=== PATIENT | male | born 1945 | race Caucasian/White ===

== ENCOUNTER 2018-02-22 09:59 | Observation (INO) ==
[2018-02-22 10:43] LABS: Basophils % 0.5 %; Eosinophils # 0.2 K/mcL (0.0-0.6); Eosinophils % 2.3 %; Hemoglobin 13.2 g/dL (12.9-16.9); Immature Granulocytes % 0.4 % (0-4); Lymphocytes # 0.9 K/mcL (0.6-4.6); Lymphocytes % 12.2 %; Mean Corpuscular HGB Conc 32.2 g/dL (31.6-35.5); Mean Corpuscular Hemoglobin 30.3 pg (28.0-33.3); Mean Platelet Volume 10.2 fL (9.4-12.4); Monocytes # 0.5 K/mcL (0.0-1.3); Monocytes % 7.1 %; Neutrophils # 5.6 K/mcL (1.6-8.9); Platelet Count 150 K/mcL (140-400); Red Blood Count 4.36 M/mcL (4.19-5.50); Segmented Neutrophils % 77.5 %
[2018-02-22 11:03] LABS: BUN/Creatinine Ratio 18 (6-26); Blood Urea Nitrogen 16 mg/dL (8-23); Calcium 9.3 mg/dL (8.6-10.3); Carbon Dioxide 29 mEq/L (23-29); Chloride 104 mEq/L (98-107); Digoxin 1.9 ng/mL (0.8-2.0); Glucose 114 mg/dL (70-105); Osmolality,Calculated 294 (280-300); Potassium 3.9 mEq/L (3.5-5.1); Sodium 141 mEq/L (136-145); eGFR For African Americans > 60 (> 60); eGFR For Non-African Americans > 60 (> 60)
[2018-02-22 11:10] LABS: INR 1.3; Prothrombin Time 13.6 Seconds (9.4-12.1)
[2018-02-22 11:13] LABS: Activated Partial Thrombo Time 31.5 Seconds (26.0-36.0)
[2018-02-22] MEDS ORDERED: ceFAZolin 1,000 MG in Water for inj. (sterile) 10 ML IVP ONE (11:52)
--- NOTE | 2018-02-22 12:03 | Emergency Department Note ---
Disposition Clinical Impression: Cellulitis Qualifiers: Site of cellulitis: extremity Site of cellulitis of extremity: lower extremity Laterality: left Qualified Code(s): L03.116 - Cellulitis of left lower limb Disposition: Admitted As Inpatient Condition: Good Time of Disposition: 12:30 Extremity Problem HPI - General Chief complaint: ED Extremity Problem,Nontraumatic Stated complaint: BLE edema Time Seen by Provider: 02/22/18 10:01 Source: patient, EMS Mode of arrival: EMS Limitations: no limitations Nursing Notes Reviewed: Yes Vital Signs Reviewed: Yes - History of Present Illness HPI Narrative: 72-year-old male presents here with complaints of bilateral leg edema. Patient presents left is worse than right. Patient reports he has had leg edema for months but the past week they have been treating left greater than right. Patient denies shortness of breath. Patient denies any fevers or chills. Patient has not seen his PCP recently. Patient does have an appointment on Tuesday but is unsure if he can make the appointment due to mobility issues. Patient reports he does sit with his legs tingling due to inability to lift them up. Pt Subjective Complaint: extremity pain, extremity swelling Onset (ago): week(s) (1) Consistency: constant Pain Scale: 0 Quality: aching Radiation: proximal Improves with: elevation Worsens with: walking Associated symptoms: Reports: denies other symptoms Context: immobilization - Related Data Home Medications Medication Instructions Recorded Confirmed Carvedilol [Coreg] 25 mg PO BID 02/22/18 02/22/18 Digoxin [Lanoxin] 0.25 mg PO DAILY 02/22/18 02/22/18 Levothyroxine [Synthroid] 150 mcg PO DAILY 02/22/18 02/22/18 Allergies Allergy/AdvReac Type Severity Reaction Status Date / Time No Known Allergies Allergy Verified 02/22/18 10:10 All systems ED: reviewed and negative except as stated. Review of Systems: As Per HPI Constitutional: Denies: fever, chills Cardiovascular: Reports: edema. Denies: chest pain Respiratory: Denies: dyspnea Past Medical History - Past Medical History Attestation: Yes The following information was validated with the patient. Source: patient, nursing notes reviewed Medical history: Reports: atrial fibrillation, thyroid disease Psychiatric history: Reports: no psych history - Social History Smoking Status: Never smoker Smokeless Tobacco Status: No Alcohol use: Reports: none Drug use: Reports: none Physical Exam - General Limitations: no limitations General appearance: alert, in no apparent distress - ENT ENT exam: normal oropharynx, mucous membranes moist, TM's normal bilaterally - Neck Neck exam: Present: normal inspection, full ROM. Absent: thyromegaly - Expanded Neck Exam Neck exam focused ED: Absent: JVD - Chest Chest inspection: Present: normal inspection, symmetric chest wall rise - Expanded Respiratory Exam Location: rales: Left, Right, Lower (faint) - Cardiovascular Cardiovascular exam: Present: regular rate, normal rhythm, normal heart sounds - Abdominal Exam Abdominal exam: Present: soft, Non-Tender, normal bowel sounds - Extremities Exam Extremities exam: Present: pedal edema (1-2 + b/l L>R with skin breakdown and redness) - Expanded Skin Exam Distribution: LUE, RLE Description: Present: erythematous, swelling, blisters Course Course Narrative: Due to patient's immobility and low likely had a follow-up patient will be admitted for IV antibiotics and further management. Patient has been accepted by Dr. Singletary Vital Signs Temperature 98.0 F 02/22/18 10:01 Pulse Rate 79 02/22/18 10:01 Respiratory Rate 18 02/22/18 10:01 Blood Pressure 146/68 02/22/18 10:01 O2 Sat by Pulse Oximetry 98 02/22/18 10:01 Temperature 98.0 F 02/22/18 10:01 Pulse Rate 79 02/22/18 10:01 Respiratory Rate 16 02/22/18 12:13 Blood Pressure 146/68 02/22/18 12:13 O2 Sat by Pulse Oximetry 98 02/22/18 10:01 Oxygen Delivery Oxygen Delivery Room Air Extremity Problem, Nontraumati - Differential Diagnosis Likely: cellulitis - Lab Data Lab results reviewed: Yes I reviewed the patient's lab results. Lab results narrative: Patient's labs within normal limits. Results discussed with patient and family. Result diagrams: 02/22/18 10:35 02/22/18 10:35 Lab Results 02/22/18 02/22/18 02/22/18 Range/Units 10:35 10:35 10:35 WBC 7.3 (4.3-11.1) K/mcL RBC 4.36 (4.19-5.50) M/mcL Hgb 13.2 (12.9-16.9) g/dL Hct 41.0 (37.5-50.1) % MCV 94.0 (83.0-100.0) fL MCH 30.3 (28.0-33.3) pg MCHC 32.2 (31.6-35.5) g/dL RDW 15.0 H (11.5-14.5) % Plt Count 150 (140-400) K/mcL MPV 10.2 (9.4-12.4) fL Immature Gran % 0.4 (0-4) % Seg Neutrophils % 77.5 % Lymphocytes % 12.2 % Monocytes % 7.1 % Eosinophils % 2.3 % Basophils % 0.5 % Neutrophils # 5.6 (1.6-8.9) K/mcL Lymphocytes # 0.9 (0.6-4.6) K/mcL Monocytes # 0.5 (0.0-1.3) K/mcL Eosinophils # 0.2 (0.0-0.6) K/mcL Basophils # 0.0 (0.0-0.2) K/mcL PT 13.6 H (9.4-12.1) Seconds INR 1.3 APTT 31.5 (26.0-36.0) Seconds Sodium 141 (136-145) mEq/L Potassium 3.9 (3.5-5.1) mEq/L Chloride 104 (98-107) mEq/L Carbon Dioxide 29 (23-29) mEq/L BUN 16 (8-23) mg/dL Creatinine 0.91 (0.70-1.30) mg/dL Est GFR ( Amer) > 60 (> 60) Est GFR (Non-Af Amer) > 60 (> 60) BUN/Creatinine Ratio 18 (6-26) Glucose 114 H (70-105) mg/dL Calculated Osmolality 294 (280-300) Calcium 9.3 (8.6-10.3) mg/dL B-Natriuretic Peptide (Less than 100) pg/mL Digoxin 1.9 (0.8-2.0) ng/mL 02/22/18 Range/Units 10:35 WBC (4.3-11.1) K/mcL RBC (4.19-5.50) M/mcL Hgb (12.9-16.9) g/dL Hct (37.5-50.1) % MCV (83.0-100.0) fL MCH (28.0-33.3) pg MCHC (31.6-35.5) g/dL RDW (11.5-14.5) % Plt Count (140-400) K/mcL MPV (9.4-12.4) fL Immature Gran % (0-4) % Seg Neutrophils % % Lymphocytes % % Monocytes % % Eosinophils % % Basophils % % Neutrophils # (1.6-8.9) K/mcL Lymphocytes # (0.6-4.6) K/mcL Monocytes # (0.0-1.3) K/mcL Eosinophils # (0.0-0.6) K/mcL Basophils # (0.0-0.2) K/mcL PT (9.4-12.1) Seconds INR APTT (26.0-36.0) Seconds Sodium (136-145) mEq/L Potassium (3.5-5.1) mEq/L Chloride (98-107) mEq/L Carbon Dioxide (23-29) mEq/L BUN (8-23) mg/dL Creatinine (0.70-1.30) mg/dL Est GFR ( Amer) (> 60) Est GFR (Non-Af Amer) (> 60) BUN/Creatinine Ratio (6-26) Glucose (70-105) mg/dL Calculated Osmolality (280-300) Calcium (8.6-10.3) mg/dL B-Natriuretic Peptide 609 H (Less than 100) pg/mL Digoxin (0.8-2.0) ng/mL - Radiology Data Radiology results reviewed: Yes I reviewed the patient's radiology results. Patient's ultrasound left lower extremity was negative for acute DVT. Patient has some superficial phlebitis. Patient chest x-ray was interpreted by radiologist reviewed by me as negative for acute abnormality. Some bibasilar scarring noted but no acute failure. Results discussed with patient - EKG Data EKG attestation: Yes I reviewed and interpreted this EKG. Rate: normal Rhythm: A.Fib T wave inversions noted in: v5, v6 When compared to previous EKG there are: previous EKG unavailable Interpretation: other (A Fib rate controlled)
[2018-02-22] MEDS ORDERED: Naloxone 0.4 MG/ML INJ IVP PRN (12:34)
[2018-02-22] MEDS: *HR* Enoxaparin 40 MG/0.4 ML SYRINGE SQ SCH (14:12)
--- NOTE | 2018-02-22 14:20 | Internal Med History&Physical ---
Date of Encounter: 02/22/18 Time of Encounter: 14:17 Assessment and Plan (1) Cellulitis Current visit: Yes Status: Acute Continue IV antibiotics. Will monitor improvement Qualifiers: Site of cellulitis: extremity Site of cellulitis of extremity: lower extremity Laterality: left Qualified Code(s): L03.116 - Cellulitis of left lower limb (2) Afib Current visit: Yes Status: Chronic Rate and rhythm stable. Continue medication. Qualifiers: Atrial fibrillation type: chronic Qualified Code(s): I48.2 - Chronic atrial fibrillation (3) Hypothyroidism Current visit: Yes Status: Chronic Will order TSH and free T4 in am Qualifiers: Hypothyroidism type: unspecified Qualified Code(s): E03.9 - Hypothyroidism , unspecified Internal Medicine - H&P: HPI Admitted From: Emergency Dept Plans for Post Hospital Care: Home History of present illness: Mr. Moody is a 72 year old male here from the ER for observation of bilateral lower extremity edema and left lower extremity cellulitis. Patient started on IV antibiotics. Patient denies shortness of breath, chest pain, nausea vomiting diarrhea, fever or chills. Patient states his legs have been swollen for the past month and has not followed up with PCP. History of a fib and hypothyroidism. Patient has not been taking Synthroid due to he thought it was making him feel bad. Past Med Surg Social Fam HX - Past Medical History Medical history: atrial fibrillation, thyroid disease Psychiatric history: no psych history - Social History Smoking Status: Never smoker Smokeless Tobacco Status: No Alcohol use: none Drug use: none Internal Medicine - H&P: Meds Carvedilol [Coreg] 25 mg PO BID 02/22/18 [History] Digoxin [Lanoxin] 0.25 mg PO DAILY 02/22/18 [History] Levothyroxine [Synthroid] 150 mcg PO DAILY 02/22/18 [History] 3 Allergy/AdvReac Type Severity Reaction Status Date / Time No Known Allergies Allergy Verified 02/22/18 10:10 All Systems PM: A 10-system review of systems was performed and is negative for pertinent findings except as documented above in the HPI. - Constitutional Constitutional: no chills, no fever(s), no night sweats - EENT Eyes: no change in vision, no discharge, no pain, no photophobia Ears: no ear discharge, no ear pain, no tinnitus Nose, mouth and throat: no dysphagia, no nasal discharge, no neck pain, no sore throat - Cardiovascular Cardiovascular ROS IM: edema, no chest pain, no diaphoresis, no dyspnea, no lightheadedness, no palpitations, no syncope Additional comments: Bilateral lower extremity edema 2+ pitting left leg slightly more than right. Redness to left leg with small abrasion on left anterior butler - Respiratory Respiratory: no cough, no dyspnea, no wheezing, no excessive phlegm production - Gastrointestinal Gastrointestinal: no abdominal pain, no diarrhea, no hematemesis, no hematochezia, no melena, no nausea, no vomiting - Musculoskeletal Musculoskeletal ROS IM: no numbness, no tingling - Integumentary Integumentary IM: no rash, no unusual bruising - Neurological Neurological ROS: no confusion, no convulsions, no focal weakness, no numbness, no tingling, no tremor(s) - Hematologic/Lymphatic Hematologic/Lymphatic: no easy bruising - Constitutional Vitals: Temp Pulse Resp BP Pulse Ox 97.7 F 66 14 130/71 94 02/22/18 13:55 02/22/18 13:55 02/22/18 13:55 02/22/18 13:55 02/22/18 13:55 General appearance: Present: A&O X 3, pleasant, no acute distress, answers questions appropriately - Head Head exam: Present: atraumatic, normocephalic - Eye Eye exam: Present: PERRL, conjuntiva pink, sclera anicteric Pupils: Present: PERRL - Neck Neck exam general surgery: Present: supple, trachea midline. Absent: lymphadenopathy - Respiratory Respiratory exam: Present: CTAB. Absent: accessory muscle use, rales, rhonchi, wheezes - Cardiovascular Cardiovascular exam: Present: irregular rhythm, +S1, +S2. Absent: diastolic murmur, gallop, rubs, systolic murmur - GI/Abdominal GI/Abdominal exam: Present: normal bowel sounds, soft, no peritoneal signs. Absent: distended, tenderness - Extremities Exam Extremities exam: Present: warm, radial pulses palpable and symmetrical. Absent : calf tenderness, cyanotic, pedal edema Additional comments: Bilateral lower extremity edema 2+ pitting, left slightly greater than right. Anterior butler area with abrasion present. Redness to bilateral lower extremities - Neurological Exam Neurological exam: Present: CN II-XII intact, oriented X3, no focal deficits. Absent: pronater drift, facial droop, speech deficit - Skin Skin exam: Present: dry, intact Internal Med - H&P Results - Labs CBC & Chem 7: 02/22/18 10:35 02/22/18 10:35
[2018-02-22] MEDS: ceFAZolin 1,000 MG in Water for inj. (sterile) 20 ML 10 ML IVP SCH ×2 (17:23→23:31)
[2018-02-23 06:35] LABS: Basophils # 0.1 K/mcL (0.0-0.2); Basophils % 0.8 %; Eosinophils # 0.1 K/mcL (0.0-0.6); Eosinophils % 2.2 %; Hemoglobin 11.5 g/dL (12.9-16.9); Immature Granulocytes % 0.3 % (0-4); Lymphocytes # 1.4 K/mcL (0.6-4.6); Lymphocytes % 21.2 %; Mean Corpuscular HGB Conc 32.9 g/dL (31.6-35.5); Mean Corpuscular Hemoglobin 30.6 pg (28.0-33.3); Mean Corpuscular Volume 93.1 fL (83.0-100.0); Mean Platelet Volume 9.6 fL (9.4-12.4); Monocytes # 0.8 K/mcL (0.0-1.3); Monocytes % 11.9 %; Platelet Count 122 K/mcL (140-400); Red Blood Count 3.76 M/mcL (4.19-5.50); Red Cell Distribution Width 15.1 % (11.5-14.5); Segmented Neutrophils % 63.6 %
[2018-02-23 06:54] LABS: Alanine Aminotransferase 26 Units/L (7-52); Albumin 3.4 g/dL (3.5-5.7); Albumin/Globulin Ratio 1.5 (1.1-2.2); Alkaline Phosphatase 97 Units/L (34-104); Aspartate Amino Transferase 48 Units/L (13-39); BUN/Creatinine Ratio 17 (6-26); Blood Urea Nitrogen 14 mg/dL (8-23); Calcium 8.5 mg/dL (8.6-10.3); Carbon Dioxide 28 mEq/L (23-29); Chloride 104 mEq/L (98-107); Globulin 2.2 g/dL (2.4-3.5); Glucose 100 mg/dL (70-105); Osmolality,Calculated 289 (280-300); Potassium 3.3 mEq/L (3.5-5.1); Sodium 139 mEq/L (136-145); Total Protein 5.6 g/dL (6.4-8.9); eGFR For African Americans > 60 (> 60); eGFR For Non-African Americans > 60 (> 60)
[2018-02-23 07:07] LABS: Thyroid Stimulating Hormone 14.517 mcIU/mL (0.340-5.600)
[2018-02-23] MEDS: ceFAZolin 1,000 MG in Water for inj. (sterile) 20 ML 10 ML IVP SCH ×3 (09:21→23:57)
[2018-02-23] MEDS: *HR* Enoxaparin 40 MG/0.4 ML SYRINGE SQ SCH (09:22)
[2018-02-23] MEDS: *HR* Digoxin 0.25 MG TABLET PO SCH (09:22)
--- NOTE | 2018-02-23 16:58 | Electrocardiograph Report ---
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
--- NOTE | 2018-02-23 17:08 | Electrocardiograph Report ---
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
--- NOTE | 2018-02-23 17:55 | Internal Med Progress Note ---
Date of Encounter: 02/23/18 Time of Encounter: 17:53 - Assessment and plan (1) Cellulitis Current Visit: Yes Status: Acute Assessment and plan: Patients bilateral legs continue with edema, but currently have Unna boot-type dressings in place. Patient to continue on Ancef. Afebrile. Qualifiers: Site of cellulitis: extremity Site of cellulitis of extremity: lower extremity Laterality: left Qualified Code(s): L03.116 - Cellulitis of left lower limb (2) Afib Current Visit: Yes Status: Chronic Assessment and plan: Patient states that he becomes a little fatigued during ambulation. Heart rate remains irregular with controlled rate less than 80 bpm. Noted occasional PVCs on personnel monitor. Vital signs been stable. Patient states that he has not been followed by a gambling cashier in several years, and has been covered by his PCP. Patient noted to have cardiomegaly on chest x-ray and has BPH greater than 600 on admission labs. We will continue with physical therapy. We will continue his current medications Qualifiers: Atrial fibrillation type: chronic Qualified Code(s): I48.2 - Chronic atrial fibrillation (3) Hypothyroidism Current Visit: Yes Status: Chronic Assessment and plan: Patient's admission labs showed TSH greater than 15. Per medical records patient had not been taking his Synthroid while at home. Synthroid was restarted since his admission. We will reevaluate TSH in 2 weeks. Qualifiers: Hypothyroidism type: unspecified Qualified Code(s): E03.9 - Hypothyroidism , unspecified - Time Spent With Patient less than 15 minutes - Subjective Interval history: Patient appears relaxin currently denies any discomforts or shortness of breath. Patient states that he does become fatigued during ambulation greater than 10 feet. Patient currently has wraps in place to lower legs due to lymphedema. Patient continues with Ancef for treatment of cellulitis to lower extremities. Patient states that he has a cardiac history but has not seen his gambling cashier in over 15 years. Denies any recent chest discomforts or palpitations. He does continue with chronic atrial fibrillation - Constitutional Vitals: Temp Pulse Resp BP Pulse Ox 98.1 F 83 18 112/76 91 02/23/18 16:00 02/23/18 16:00 02/23/18 16:00 02/23/18 16:00 02/23/18 16:00 General appearance: Present: A&O X 3, pleasant, no acute distress, answers questions appropriately - Head Head exam: Present: atraumatic, normocephalic - Eye Eye exam: Present: PERRL, conjuntiva pink, sclera anicteric Pupils: Present: PERRL - Neck Neck exam general surgery: Present: supple, trachea midline. Absent: lymphadenopathy - Respiratory Respiratory exam: Present: CTAB. Absent: accessory muscle use, rales, rhonchi, wheezes Additional comments: Lungs are clear throughout upper jaeger and diminished bases. - Cardiovascular Cardiovascular exam: Present: RRR, +S1, +S2. Absent: diastolic murmur, gallop, rubs, systolic murmur Additional comments: Days with no regular heart tones and soft systolic murmur noted. Patient with bilateral lower leg edema. Bilateral legs with wraps in place - GI/Abdominal GI/Abdominal exam: Present: normal bowel sounds, soft, no peritoneal signs. Absent: distended, tenderness - Extremities Exam Extremities exam: Present: warm, radial pulses palpable and symmetrical. Absent : calf tenderness, cyanotic, pedal edema - Neurological Exam Neurological exam: Present: CN II-XII intact, oriented X3, no focal deficits. Absent: pronater drift, facial droop, speech deficit - Skin Skin exam: Present: dry, intact Internal Medicine: Result - Labs CBC & Chem 7: 02/23/18 06:15 02/23/18 06:15 Labs: Short CBC 02/23/18 Range/Units 06:15 WBC 6.4 (4.3-11.1) K/mcL Hgb 11.5 L D (12.9-16.9) g/dL Hct 35.0 L (37.5-50.1) % Plt Count 122 L (140-400) K/mcL Neutrophils # 4.0 (1.6-8.9) K/mcL BMP 02/23/18 06:15 Sodium 139 Potassium 3.3 L Chloride 104 Carbon Dioxide 28 BUN 14 Creatinine 0.84 Glucose 100 Calcium 8.5 L Cardiac Enzymes 02/22/18 02/23/18 Range/Units 21:45 06:15 Troponin I < 0.03 < 0.03 (< 0.04) ng/mL Liver Function 02/23/18 Range/Units 06:15 Total Bilirubin 2.0 H (0.3-1.0) mg/dL AST 48 H (13-39) Units/L ALT 26 (7-52) Units/L Alkaline Phosphatase 97 (34-104) Units/L Albumin 3.4 L (3.5-5.7) g/dL - ABG Interpretation ABG results: PT/INR, D-dimer PT 13.6 Seconds (9.4-12.1) H 02/22/18 10:35 Consult Discharge Plan - Plan Referrals: NONE,PCP [Primary Care Provider] -
[2018-02-24] MEDS: *HR* Digoxin 0.25 MG TABLET PO SCH (08:12)
[2018-02-24] MEDS: ceFAZolin 1,000 MG in Water for inj. (sterile) 20 ML 10 ML IVP SCH ×2 (08:13→15:54)
[2018-02-24] MEDS: *HR* Enoxaparin 40 MG/0.4 ML SYRINGE SQ SCH (08:13)
--- NOTE | 2018-02-24 14:30 | Internal Med Progress Note ---
Date of Encounter: 02/24/18 Time of Encounter: 14:26 - Assessment and plan (1) Cellulitis Current Visit: Yes Status: Acute Assessment and plan: Patients bilateral legs continue with edema, but currently have Unna boot-type dressings in place. Exam limited due to current leg dsg. Patient to continue on Ancef. Afebrile. Qualifiers: Site of cellulitis: extremity Site of cellulitis of extremity: lower extremity Laterality: left Qualified Code(s): L03.116 - Cellulitis of left lower limb (2) Afib Current Visit: Yes Status: Chronic Assessment and plan: Patient states that he becomes a little fatigued during ambulation. Heart rate remains irregular with controlled rate less than 80 bpm. Noted occasional PVCs on secured entrance monitor. Vital signs been stable. Echocardiogram reviewed. Will discuss with Dr. Ty. Qualifiers: Atrial fibrillation type: chronic Qualified Code(s): I48.2 - Chronic atrial fibrillation (3) Hypothyroidism Current Visit: Yes Status: Chronic Assessment and plan: Patient's admission labs showed TSH greater than 15. Per medical records patient had not been taking his Synthroid while at home. Synthroid was restarted since his admission. We will reevaluate TSH in 2 weeks. Qualifiers: Hypothyroidism type: unspecified Qualified Code(s): E03.9 - Hypothyroidism , unspecified - Time Spent With Patient less than 15 minutes - Subjective Interval history: Patient appears relaxed currently denies any discomforts or shortness of breath. Patient continue to have lymphedema to lower legs, which remained wrapped. - Constitutional Vitals: Temp Pulse Resp BP Pulse Ox 97.9 F 72 16 151/66 93 02/24/18 08:32 02/24/18 12:00 02/24/18 12:00 02/24/18 12:00 02/24/18 12:00 General appearance: Present: A&O X 3, pleasant, no acute distress, answers questions appropriately - Head Head exam: Present: atraumatic, normocephalic - Eye Eye exam: Present: PERRL, conjuntiva pink, sclera anicteric Pupils: Present: PERRL - Neck Neck exam general surgery: Present: supple, trachea midline. Absent: lymphadenopathy - Respiratory Respiratory exam: Present: CTAB. Absent: accessory muscle use, rales, rhonchi, wheezes Additional comments: deminished breath sounds to bases, otherwise is CTA. Resp effort is relaxed. - Cardiovascular Cardiovascular exam: Present: RRR, +S1, +S2. Absent: diastolic murmur, gallop, rubs, systolic murmur - GI/Abdominal GI/Abdominal exam: Present: normal bowel sounds, soft, no peritoneal signs. Absent: distended, tenderness - Extremities Exam Extremities exam: Present: warm, radial pulses palpable and symmetrical. Absent : calf tenderness, cyanotic, pedal edema Additional comments: Moderate edema noted. Exam limited due to having wraps to bilateral lower legs. - Neurological Exam Neurological exam: Present: CN II-XII intact, oriented X3, no focal deficits. Absent: pronater drift, facial droop, speech deficit - Skin Skin exam: Present: dry, intact Internal Medicine: Result - Labs CBC & Chem 7: 02/23/18 06:15 02/23/18 06:15 - ABG Interpretation ABG results: PT/INR, D-dimer PT 13.6 Seconds (9.4-12.1) H 02/22/18 10:35 - Impressions Impressions Echocardiogram 02/24/18 19:21 Impressions: Technically sub-optimal due to poor echocardiographic windows. LVEF 55%. Normal LV chamber size and function. Mild concentric left ventricular hypertrophy. Indeterminate diastolic function. Normal right ventricular structure and function. Mild aortic regurgitation. No evidence of pulmonary hypertension. Left Ventricular Wall Motion: Rest Echo Findings All wall segments showed normal motion. Findings: Study Quality * Technically sub-optimal due to poor echocardiographic windows. ECG Findings * Atrial fibrillation. Left Ventricle * LVEF 55%. * Normal LV chamber size and function. * Mild concentric left ventricular hypertrophy. * Indeterminate diastolic function. Right Ventricle * Normal right ventricular structure and function. Left Atrium * Mildly dilated left atrium. Right Atrium * Normal right atrial size. Interatrial Septum * Interatrial septum not well evaluated. Aortic Valve * Trileaflet aortic valve. * Mild aortic regurgitation. * No aortic stenosis. Mitral Valve * Normal mitral valve structure and function. * No mitral regurgitation. * No mitral stenosis. Tricuspid Valve * Normal tricuspid valve structure and function. * Trace tricuspid regurgitation. * No evidence of pulmonary hypertension. Pulmonic Valve * Pulmonic valve not well visualized. Aorta * Normally sized aortic root. Pericardium * The pericardium appears normal. IVC * The IVC is not well evaluated. Pulmonary Artery * Normal visualized portions of the main pulmonary artery. - Diagnostic Studies Other Images Status: image reviewed by me (echocardiogram) Consult Discharge Plan - Plan Referrals: NONE,PCP [Primary Care Provider] -
[2018-02-24] MEDS ORDERED: Bisacodyl 10 MG RECTAL SUPPOSITORY RC PRN (14:49)
[2018-02-25] MEDS: ceFAZolin 1,000 MG in Water for inj. (sterile) 20 ML 10 ML IVP SCH ×3 (00:25→18:07)
[2018-02-25] MEDS: *HR* Digoxin 0.25 MG TABLET PO SCH (10:34)
[2018-02-25] MEDS: *HR* Enoxaparin 40 MG/0.4 ML SYRINGE SQ SCH (10:34)
--- NOTE | 2018-02-25 17:45 | Internal Med Progress Note ---
Date of Encounter: 02/25/18 Time of Encounter: 17:45 - Assessment and plan (1) Cellulitis Current Visit: Yes Status: Acute Assessment and plan: We will continue IV antibiotics and follow, clinically. He is to undergo assessment by wound care, again, on 02/27/2018. Will hopefully discharge at that time and/or adjust discharge planning. Qualifiers: Site of cellulitis: extremity Site of cellulitis of extremity: lower extremity Laterality: left Qualified Code(s): L03.116 - Cellulitis of left lower limb (2) Afib Current Visit: Yes Status: Chronic Assessment and plan: Clinically stable but he occasionally has slow rate, into the 40s. He is asymptomatic and otherwise tolerates this well. Qualifiers: Atrial fibrillation type: chronic Qualified Code(s): I48.2 - Chronic atrial fibrillation (3) Hypothyroidism Current Visit: Yes Status: Chronic Assessment and plan: He is back on supplementation and will need further assessment in the future, as previously documented. Qualifiers: Hypothyroidism type: unspecified Qualified Code(s): E03.9 - Hypothyroidism , unspecified - Time Spent With Patient 25 - 35 minutes - Subjective Interval history: Patient is without problem. He moved his bowels. He still has left calf pain. He denies dyspnea or chest discomfort, etc. Patient has no complaint of chest discomfort, dyspnea, orthopnea, palpitations, nausea or vomiting, constipation or diarrhea, other changes in bowel habits, difficulty with urination, rash or itching, or other new complaints, except as mentioned above. Review of systems is otherwise unremarkable. - Constitutional Vitals: Temp Pulse Resp BP Pulse Ox 97.9 F 79 18 93/56 92 02/25/18 16:49 02/25/18 16:49 02/25/18 16:49 02/25/18 16:49 02/25/18 16:49 General appearance: Present: pleasant, answers questions appropriately Exam: Examination: (Except as mentioned above): General: In no apparent distress. Alert and oriented 3. Nondiaphoretic. Head: Atraumatic and normocephalic. Respiratory: No use of accessory muscles. Lungs are clear throughout. Normal airflow. Cardiovascular: Regular rate and rhythm without murmur appreciated. Abdomen: Bowel sounds are normal. No hepatosplenomegaly mass or tenderness appreciated. Obese and therefore difficult to palpate deeply. Extremities: No cyanosis clubbing or edema. Compression wraps in place. 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 Skin: Warm and non-diaphoretic with no new lesions noted. Internal Medicine: Result - Labs CBC & Chem 7: 02/23/18 06:15 02/23/18 06:15 - ABG Interpretation ABG results: PT/INR, D-dimer PT 13.6 Seconds (9.4-12.1) H 02/22/18 10:35 Consult Discharge Plan - Plan Referrals: NONE,PCP [Primary Care Provider] -
[2018-02-26] MEDS: ceFAZolin 1,000 MG in Water for inj. (sterile) 20 ML 10 ML IVP SCH ×3 (00:27→17:36)
[2018-02-26 05:20] LABS: BUN/Creatinine Ratio 16 (6-26); Blood Urea Nitrogen 11 mg/dL (8-23); Carbon Dioxide 26 mEq/L (23-29); Chloride 105 mEq/L (98-107); Glucose 107 mg/dL (70-105); Magnesium 2.3 mg/dL (1.6-2.6); Osmolality,Calculated 286 (280-300); Potassium 4.4 mEq/L (3.5-5.1); Sodium 138 mEq/L (136-145); eGFR For African Americans > 60 (> 60); eGFR For Non-African Americans > 60 (> 60)
--- NOTE | 2018-02-26 05:46 | Internal Med Progress Note ---
Date of Encounter: 02/26/18 Time of Encounter: 05:46 - Assessment and plan (1) Cellulitis Current Visit: Yes Status: Acute Assessment and plan: He is to undergo assessment by wound care, again, on 02/27/2018. Will hopefully discharge at that time and/or adjust discharge planning. We will continue IV antibiotics until then. Qualifiers: Site of cellulitis: extremity Site of cellulitis of extremity: lower extremity Laterality: left Qualified Code(s): L03.116 - Cellulitis of left lower limb (2) Afib Current Visit: Yes Status: Chronic Assessment and plan: Clinically stable but he occasionally has slow rate, into the 50s. He is asymptomatic and otherwise tolerates this well. Qualifiers: Atrial fibrillation type: chronic Qualified Code(s): I48.2 - Chronic atrial fibrillation (3) Hypothyroidism Current Visit: Yes Status: Chronic Assessment and plan: He is back on supplementation and will need further assessment in the future, as previously documented. Qualifiers: Hypothyroidism type: unspecified Qualified Code(s): E03.9 - Hypothyroidism , unspecified (4) Urinary frequency Current Visit: Yes Status: Acute Assessment and plan: We will check UA and PSA and follow. - Time Spent With Patient 25 - 35 minutes - Subjective Interval history: Patient is notes that he is tired. He states that he has to urinate about every hour and this is confirmed by nursing. He denies dysuria. However, his urinary frequency is keeping him from sleeping and he would like to see a decrease in his urination. He attributes to his medicines but I do not believe these are related. His sister has spent the night with him and nursing notes that she has a light on it may be interfering with his sleep. I reviewed echocardiogram report with patient and sister. He denies dyspnea or fevers, chills, sweats, etc. Patient has no complaint of chest discomfort, dyspnea, orthopnea, palpitations, nausea or vomiting, constipation or diarrhea, other changes in bowel habits, difficulty with urination, rash or itching, or other new complaints, except as mentioned above. Review of systems is otherwise unremarkable. - Constitutional Vitals: Temp Pulse Resp BP Pulse Ox 97.5 F L 85 16 116/64 96 02/26/18 04:00 02/26/18 04:00 02/26/18 04:00 02/26/18 04:00 02/26/18 04:00 General appearance: Present: pleasant, answers questions appropriately Exam: Examination: (Except as mentioned above): General: In no apparent distress. Alert and oriented 3. Nondiaphoretic. Head: Atraumatic and normocephalic. Respiratory: No use of accessory muscles. He has left basilar rales but lungs are otherwise clear. Normal airflow. Cardiovascular: Regular rate and rhythm without murmur appreciated. Abdomen: Bowel sounds are normal. No hepatosplenomegaly mass or tenderness appreciated. Obese and therefore difficult to palpate deeply. Extremities: No cyanosis clubbing or edema. He still has calf tenderness, much worse at the left than the right. This seems to be superficial. Skin: Warm and non-diaphoretic with no new lesions noted. Internal Medicine: Result - Labs CBC & Chem 7: 02/23/18 06:15 02/26/18 04:35 Labs: BMP 02/26/18 04:35 Sodium 138 Potassium 4.4 Chloride 105 Carbon Dioxide 26 BUN 11 Creatinine 0.67 L Glucose 107 H Calcium 9.0 - ABG Interpretation ABG results: PT/INR, D-dimer PT 13.6 Seconds (9.4-12.1) H 02/22/18 10:35 Consult Discharge Plan - Plan Referrals: NONE,PCP [Primary Care Provider] -
[2018-02-26] MEDS: *HR* Digoxin 0.25 MG TABLET PO SCH (09:05)
[2018-02-26] MEDS: *HR* Enoxaparin 40 MG/0.4 ML SYRINGE SQ SCH (09:05)
[2018-02-26 16:16] LABS: Bilirubin,Urine Negative (Negative); Blood,Urine Negative (Negative); Clarity,Urine Clear (Clear); Color,Urine Yellow (Yellow); Glucose,Urine (UA) Normal (Normal); Ketones,Urine Negative (Negative); Leukocyte Esterase,Urine Negative (Negative); Nitrite,Urine Negative (Negative); Protein,Urine Negative (Neg-Trace); Urobilinogen,Urine Normal (Normal)
[2018-02-27] MEDS: ceFAZolin 1,000 MG in Water for inj. (sterile) 20 ML 10 ML IVP SCH ×4 (00:11→23:09)
[2018-02-27] MEDS: *HR* Digoxin 0.25 MG TABLET PO SCH (09:32)
[2018-02-27] MEDS: *HR* Enoxaparin 40 MG/0.4 ML SYRINGE SQ SCH (09:32)
--- NOTE | 2018-02-27 15:03 | Internal Med Progress Note ---
Date of Encounter: 02/27/18 Time of Encounter: 15:00 - Assessment and plan (1) Cellulitis Current Visit: Yes Status: Acute Assessment and plan: continue atb and follow up with wound Qualifiers: Site of cellulitis: extremity Site of cellulitis of extremity: lower extremity Laterality: left Qualified Code(s): L03.116 - Cellulitis of left lower limb (2) Afib Current Visit: Yes Status: Chronic Assessment and plan: rate and rythm stable. will monitor. Qualifiers: Atrial fibrillation type: chronic Qualified Code(s): I48.2 - Chronic atrial fibrillation - Time Spent With Patient 25 - 35 minutes - Subjective Interval history: pt denies pain, SOB, fever, chills, NVD. will plan to transfer to [facility] in order to start therapy to increase mobility and endurance. - Constitutional Vitals: Temp Pulse Resp BP Pulse Ox 98.0 F 68 16 106/62 92 02/27/18 11:54 02/27/18 11:54 02/27/18 11:54 02/27/18 11:54 02/27/18 11:54 General appearance: Present: A&O X 3, pleasant, answers questions appropriately - Head Head exam: Present: atraumatic, normocephalic - Eye Eye exam: Present: PERRL, conjuntiva pink, sclera anicteric Pupils: Present: PERRL - Neck Neck exam general surgery: Present: supple, trachea midline. Absent: lymphadenopathy - Respiratory Respiratory exam: Present: CTAB. Absent: accessory muscle use, rales, rhonchi, wheezes - Cardiovascular Cardiovascular exam: Present: RRR, +S1, +S2. Absent: diastolic murmur, gallop, rubs, systolic murmur - GI/Abdominal GI/Abdominal exam: Present: normal bowel sounds, soft, no peritoneal signs. Absent: distended, tenderness - Extremities Exam Extremities exam: Present: warm, radial pulses palpable and symmetrical. Absent : calf tenderness, cyanotic, pedal edema - Neurological Exam Neurological exam: Present: CN II-XII intact, oriented X3, no focal deficits. Absent: pronater drift, facial droop, speech deficit - Skin Skin exam: Present: dry, intact Additional comments: edema BLE, drsgs dry and intact. Internal Medicine: Result - Labs CBC & Chem 7: 02/23/18 06:15 02/26/18 04:35 Labs: Urine 02/26/18 Range/Units 16:00 Urine Color Yellow (Yellow) Urine Clarity Clear (Clear) Urine pH 6.0 (5.0-8.0) pH Units Ur Specific [place] 1.010 (1.010-1.025) Urine Protein Negative (Neg-Trace) mg/dL Urine Glucose (UA) Normal (Normal) mg/dL - ABG Interpretation ABG results: PT/INR, D-dimer PT 13.6 Seconds (9.4-12.1) H 02/22/18 10:35 Consult Discharge Plan - Plan Referrals: NONE,PCP [Primary Care Provider] -
[2018-02-28] MEDS: *HR* Digoxin 0.25 MG TABLET PO SCH (10:02)
[2018-02-28] MEDS: ceFAZolin 1,000 MG in Water for inj. (sterile) 20 ML 10 ML IVP SCH ×2 (10:02→18:22)
[2018-02-28] MEDS: *HR* Enoxaparin 40 MG/0.4 ML SYRINGE SQ SCH (10:03)
--- NOTE | 2018-02-28 12:19 | Internal Med Progress Note ---
Date of Encounter: 02/28/18 Time of Encounter: 12:17 - Assessment and plan (1) Cellulitis Current Visit: Yes Status: Acute Assessment and plan: continue atb and follow up with wound. improving Qualifiers: Site of cellulitis: extremity Site of cellulitis of extremity: lower extremity Laterality: left Qualified Code(s): L03.116 - Cellulitis of left lower limb (2) Afib Current Visit: Yes Status: Chronic Assessment and plan: rate and rythm stable. will monitor. Qualifiers: Atrial fibrillation type: chronic Qualified Code(s): I48.2 - Chronic atrial fibrillation (3) Physical deconditioning Current Visit: Yes Status: Acute Assessment and plan: continue PT, OT to eval and treat. will follow progress. - Time Spent With Patient 25 - 35 minutes - Subjective Interval history: states feeling a bit better this am. slept well. Last BM yesterday. denies pain, SOB, fever, chills, NVD. ambulated with walker with PT in hallway. will order OT to eval and treat. continue IV atb for LE cellulitis. - Constitutional Vitals: Temp Pulse Resp BP Pulse Ox 98.2 F 72 16 100/67 96 02/28/18 07:16 02/28/18 11:21 02/28/18 11:21 02/28/18 11:21 02/28/18 11:21 General appearance: Present: A&O X 3, pleasant, no acute distress, obese, answers questions appropriately - Head Head exam: Present: atraumatic, normocephalic - Eye Eye exam: Present: PERRL, conjuntiva pink, sclera anicteric Pupils: Present: PERRL - Neck Neck exam general surgery: Present: supple, trachea midline. Absent: lymphadenopathy - Respiratory Respiratory exam: Present: CTAB. Absent: accessory muscle use, rales, rhonchi, wheezes - Cardiovascular Cardiovascular exam: Present: irregular rhythm, +S1, +S2. Absent: diastolic murmur, gallop, rubs, systolic murmur - GI/Abdominal GI/Abdominal exam: Present: normal bowel sounds, soft, no peritoneal signs. Absent: distended, tenderness - Extremities Exam Extremities exam: Present: warm, radial pulses palpable and symmetrical. Absent : calf tenderness, cyanotic, pedal edema Additional comments: slight redness RLE, minimal edema BLE. wrapped with drsg, dry and intact. - Neurological Exam Neurological exam: Present: CN II-XII intact, oriented X3, no focal deficits. Absent: pronater drift, facial droop, speech deficit - Skin Skin exam: Present: dry, intact Internal Medicine: Result - Labs CBC & Chem 7: 02/23/18 06:15 02/26/18 04:35 - ABG Interpretation ABG results: PT/INR, D-dimer PT 13.6 Seconds (9.4-12.1) H 02/22/18 10:35 Consult Discharge Plan - Plan Referrals: NONE,PCP [Primary Care Provider] -
[2018-03-01] MEDS: ceFAZolin 1,000 MG in Water for inj. (sterile) 20 ML 10 ML IVP SCH ×2 (00:25→10:28)
[2018-03-01] MEDS: *HR* Digoxin 0.25 MG TABLET PO SCH (10:29)
[2018-03-01] MEDS: *HR* Enoxaparin 40 MG/0.4 ML SYRINGE SQ SCH (10:29)
--- NOTE | 2018-03-01 14:55 | Internal Med Progress Note ---
Date of Encounter: 03/01/18 Time of Encounter: 14:53 - Assessment and plan (1) Cellulitis Current Visit: Yes Status: Acute Assessment and plan: continue atb and follow up with wound. improving Qualifiers: Site of cellulitis: extremity Site of cellulitis of extremity: lower extremity Laterality: left Qualified Code(s): L03.116 - Cellulitis of left lower limb (2) Afib Current Visit: Yes Status: Chronic Assessment and plan: rate and rythm stable. will monitor. Qualifiers: Atrial fibrillation type: chronic Qualified Code(s): I48.2 - Chronic atrial fibrillation (3) Physical deconditioning Current Visit: Yes Status: Acute Assessment and plan: continue PT, OT to eval and treat. will follow progress. - Time Spent With Patient less than 15 minutes - Subjective Interval history: states feeling stronger, slept well. Last BM yesterday. denies pain, SOB, fever, chills, NVD. ambulated with walker with PT in hallway. participating well with therapy. sister at bedside. BLE 1+ pitting edema, improved. wound changed BLE drsgs and states improving. see wound note dated today. - Constitutional Vitals: Temp Pulse Resp BP Pulse Ox 98.3 F 67 12 110/68 92 03/01/18 08:00 03/01/18 08:00 03/01/18 08:00 03/01/18 08:00 03/01/18 08:00 General appearance: Present: A&O X 3, pleasant, no acute distress, obese, answers questions appropriately - Head Head exam: Present: atraumatic, normocephalic - Eye Eye exam: Present: PERRL, conjuntiva pink, sclera anicteric Pupils: Present: PERRL - Neck Neck exam general surgery: Present: supple, trachea midline. Absent: lymphadenopathy - Respiratory Respiratory exam: Present: CTAB. Absent: accessory muscle use, rales, rhonchi, wheezes - Cardiovascular Cardiovascular exam: Present: irregular rhythm, +S1, +S2. Absent: diastolic murmur, gallop, rubs, systolic murmur - GI/Abdominal GI/Abdominal exam: Present: normal bowel sounds, soft, no peritoneal signs. Absent: distended, tenderness - Extremities Exam Extremities exam: Present: pedal edema, warm, radial pulses palpable and symmetrical. Absent: calf tenderness, cyanotic Additional comments: 1+ BLE pedal edema. drsgs dry and intact. - Neurological Exam Neurological exam: Present: CN II-XII intact, oriented X3, no focal deficits. Absent: pronater drift, facial droop, speech deficit - Skin Skin exam: Present: dry, intact Internal Medicine: Result - Labs CBC & Chem 7: 02/23/18 06:15 02/26/18 04:35 - ABG Interpretation ABG results: PT/INR, D-dimer PT 13.6 Seconds (9.4-12.1) H 02/22/18 10:35 Consult Discharge Plan - Plan Referrals: NONE,PCP [Primary Care Provider] -
[2018-03-01 14:59] VITALS: BP 106/62
== END 2018-03-01 17:12 ==
LOC: INPGRE 09:59 → EMEROOGRE 09:59 → INPGRE 12:15

== ENCOUNTER 2018-03-01 16:26 | Inpatient (IN) ==
[2018-03-01] MEDS ORDERED: Bisacodyl 10 MG RECTAL SUPPOSITORY RC PRN (16:59)
[2018-03-02] MEDS: ceFAZolin 1,000 MG in Water for inj. (sterile) 20 ML 10 ML IVP SCH ×4 (00:03→23:56)
[2018-03-02] MEDS: *HR* Enoxaparin 40 MG/0.4 ML SYRINGE SQ SCH (05:06)
[2018-03-02] MEDS: *HR* Digoxin 0.25 MG TABLET PO SCH (09:38)
--- NOTE | 2018-03-02 14:24 | Internal Med Progress Note ---
Date of Encounter: 03/02/18 Time of Encounter: 14:22 - Assessment and plan (1) Cellulitis Current Visit: No Status: Acute Assessment and plan: improving continue to follow iw wound and atb. Qualifiers: Site of cellulitis: extremity Site of cellulitis of extremity: lower extremity Laterality: left Qualified Code(s): L03.116 - Cellulitis of left lower limb (2) Afib Current Visit: No Status: Chronic Assessment and plan: rate and rhythm controlled. monitor. Qualifiers: Atrial fibrillation type: chronic Qualified Code(s): I48.2 - Chronic atrial fibrillation (3) Physical deconditioning Current Visit: No Status: Acute Assessment and plan: continue PT/OT. will follow progress. - Time Spent With Patient less than 15 minutes - Subjective Interval history: participating well with therapy. ambulating in hallway. denies SOB, fever, chills, NVD> c/o left great toe pain at the joint. hx of gout. - Constitutional Vitals: Temp Pulse Resp BP Pulse Ox 98.0 F 62 16 123/70 94 03/02/18 07:01 03/02/18 07:01 03/02/18 07:01 03/02/18 07:01 03/02/18 07:01 General appearance: Present: A&O X 3, pleasant, no acute distress, obese, answers questions appropriately - Head Head exam: Present: atraumatic, normocephalic - Eye Eye exam: Present: PERRL, conjuntiva pink, sclera anicteric Pupils: Present: PERRL - Neck Neck exam general surgery: Present: supple, trachea midline. Absent: lymphadenopathy - Respiratory Respiratory exam: Present: CTAB. Absent: accessory muscle use, rales, rhonchi, wheezes - Cardiovascular Cardiovascular exam: Present: irregular rhythm, +S1, +S2. Absent: diastolic murmur, gallop, rubs, systolic murmur - GI/Abdominal GI/Abdominal exam: Present: normal bowel sounds, soft, no peritoneal signs. Absent: distended, tenderness - Extremities Exam Extremities exam: Present: warm, radial pulses palpable and symmetrical. Absent : calf tenderness, cyanotic, pedal edema Additional comments: noni boots BLE> - Neurological Exam Neurological exam: Present: CN II-XII intact, oriented X3, no focal deficits. Absent: pronater drift, facial droop, speech deficit - Skin Skin exam: Present: dry, intact Consult Discharge Plan - Plan Referrals: NONE,PCP [Primary Care Provider] -
[2018-03-03] MEDS: *HR* Enoxaparin 40 MG/0.4 ML SYRINGE SQ SCH (06:02)
[2018-03-03] MEDS: ceFAZolin 1,000 MG in Water for inj. (sterile) 20 ML 10 ML IVP SCH (11:03)
[2018-03-03] MEDS: *HR* Digoxin 0.25 MG TABLET PO SCH (11:03)
[2018-03-03 11:13] VITALS: BP 111/70
--- NOTE | 2018-03-03 11:40 | Discharge Summary ---
Orders not resulted at time of discharge: Pending orders 03/06/18 04:00 Activated Partial Thrombo Time [COAG] MO Basic Metabolic Panel MO Complete Blood Count [HEME] MO 03/13/18 04:00 Activated Partial Thrombo Time [COAG] MO Basic Metabolic Panel MO Complete Blood Count [HEME] MO 03/20/18 04:00 Activated Partial Thrombo Time [COAG] MO Basic Metabolic Panel MO Complete Blood Count [HEME] MO 03/27/18 04:00 Activated Partial Thrombo Time [COAG] MO Basic Metabolic Panel MO Complete Blood Count [HEME] MO 04/03/18 04:00 Activated Partial Thrombo Time [COAG] MO Basic Metabolic Panel MO Complete Blood Count [HEME] MO 04/10/18 04:00 Activated Partial Thrombo Time [COAG] MO Basic Metabolic Panel MO Complete Blood Count [HEME] MO 04/17/18 04:00 Activated Partial Thrombo Time [COAG] MO Basic Metabolic Panel MO Complete Blood Count [HEME] MO 04/24/18 04:00 Activated Partial Thrombo Time [COAG] MO Basic Metabolic Panel MO Complete Blood Count [HEME] MO 05/01/18 04:00 Activated Partial Thrombo Time [COAG] MO Basic Metabolic Panel MO Complete Blood Count [HEME] MO 05/08/18 04:00 Activated Partial Thrombo Time [COAG] MO Basic Metabolic Panel MO Complete Blood Count [HEME] MO Date of Encounter: 03/03/18 Time of Encounter: 11:38 - Discharge Diagnosis (1) Cellulitis Priority: Primary Status: Acute Comments: No acute issues. Patient has improved with cellulitis during his stay of facility. Patient continues to wear the boots and will continue with Unna boots at home with home health supervising. Patient's lymphedema has diminished during his stay. Patient dissipated and physical therapy and progressed well, but continues to require assist device such as a walker during ambulation. Patient continues current medications at home Qualifiers: Site of cellulitis: extremity Site of cellulitis of extremity: lower extremity Laterality: left Qualified Code(s): L03.116 - Cellulitis of left lower limb (2) Afib Priority: Secondary Status: Chronic Comments: No acute issues while at facility. Patient's heart rate remains irregular but with controlled rate less than 100. Patient had a echocardiogram during his stay which showed no acute issues. Qualifiers: Atrial fibrillation type: chronic Qualified Code(s): I48.2 - Chronic atrial fibrillation (3) Hypothyroidism Priority: Secondary Status: Chronic Comments: Patient has stopped taking his medications prior to admission. Patient had TSH greater than 14 on admission. Patient was restarted on his home dose of Synthroid and would recommend having his TSH rechecked in 2-3 weeks. Qualifiers: Hypothyroidism type: unspecified Qualified Code(s): E03.9 - Hypothyroidism , unspecified Hospital course: Mr. Moody is a 72 year old male Who was admitted to this facility with lymphedema that had been worsening over the last several weeks. She noted to have cellulitis to bilateral legs and was started on an antibiotic which has ramus course during his stay here. Patient noted to be deconditioned and dissipated and physical therapy during his stay in progressed well per reports. Patient's lymphedema was treated with little bruits which remain in place and will be continued at home with home health supervising. Patient currently denies any discomforts or shortness of breath. Patient continues with atrial fibrillation with controlled rate less than 100. Patient had echocardiogram during his stay here which showed no acute process. Patient to continue with current medications at home. Would recommend patient to follow up with PCP and cardiology during the upcoming weeks following discharge. Discharge discussed with: patient Time spent discussing smoking cessation with patient: 3 to 10 minutes - Time Spent with Patient Total time spent providing and/or coordinating discharge services: Less than 30 minutes - Discharge Medications Home Medications: Carvedilol [Coreg] 25 mg PO BID 02/22/18 [History] Digoxin [Lanoxin] 0.25 mg PO DAILY 02/22/18 [History] Levothyroxine [Synthroid] 150 mcg PO DAILY 02/22/18 [History] Allergies/Adverse Reactions: 3 Allergy/AdvReac Type Severity Reaction Status Date / Time No Known Allergies Allergy Verified 02/22/18 10:10 Date of admission: 03/01/18 16:40 Primary care physician: PCP NONE Consults: 03/01/18 16:52 Consult to Occupational Therapy [CONS] Routine Comment: Evaluate, develop and implement POC Reason for Consult: deonconditioning Does patient have active BEDREST order?: No Is patient medically & hemodynamically stable?: Yes Patient assessed for mobility or mobilized this visit?: Yes Consult to Physical Therapy [CONS] Routine Comment: Evaluate, develop and implement POC Reason for Consult: deconditioning. Does patient have active BEDREST order?: No Is patient medically & hemodynamically stable?: Yes Patient assessed for mobility or mobilized this visit?: Yes Consult to Fire Chief'S Aide [CONS] Routine Reason for SW Consult: d/c planning. medical pt to swing pt 03/01/18 17:10 Consult to Wound Care [CONS] Routine Reason for Consult: eval and treat Call Completed: Yes Discharging clinician: Prabhjot Lemus Anticipated date of discharge: 03/03/18 - Constitutional Vitals: Temp Pulse Resp BP Pulse Ox 98.1 F 70 16 111/70 93 03/03/18 07:00 03/03/18 07:00 03/03/18 07:00 03/03/18 07:00 03/03/18 07:00 General appearance: Present: A&O X 3, pleasant, no acute distress, obese, answers questions appropriately - Head Head exam: Present: atraumatic, normocephalic - Eye Eye exam: Present: PERRL, conjuntiva pink, sclera anicteric Pupils: Present: PERRL - Neck Neck exam general surgery: Present: supple, trachea midline. Absent: lymphadenopathy - Respiratory Respiratory exam: Present: CTAB. Absent: accessory muscle use, rales, rhonchi, wheezes - Cardiovascular Cardiovascular exam: Present: irregular rhythm, RRR, +S1, +S2. Absent: diastolic murmur, gallop, rubs, systolic murmur Additional comments: Heart rate remains irregular with controlled rate less than 100 - GI/Abdominal GI/Abdominal exam: Present: normal bowel sounds, soft, no peritoneal signs. Absent: distended, tenderness - Extremities Exam Extremities exam: Present: pedal edema, warm, radial pulses palpable and symmetrical. Absent: calf tenderness, cyanotic Additional comments: Patient continues to have edema to bilateral lower legs. Unna boots remain in place. - Neurological Exam Neurological exam: Present: CN II-XII intact, oriented X3, no focal deficits. Absent: pronater drift, facial droop, speech deficit - Skin Skin exam: Present: dry, intact - Patient Status Disposition: Home Health Service Condition: Good Functional capacity at discharge: uses cane/walker Overall status at discharge: patient is progressing back to baseline - Discharge Instructions Follow Up With: NONE,PCP [Primary Care Provider] - - Diet and Activity Activity: ambulate only with your walker, as per physical therapy, resume usual activities as tolerated Diet: advance to your usual diet, low fat, low cholesterol, low salt diet
--- NOTE | 2018-03-03 11:49 | Physician Discharge Referral ---
Home Health/Hosp Referral Info Transfer to: Home Health Provider in Charge Post Discharge: PCP - Diagnosis (1) Cellulitis Priority: Primary Status: Acute (2) Afib Priority: Secondary Status: Chronic (3) Hypothyroidism Priority: Secondary Status: Chronic - Respiratory Orders Smoking Cessation: Smoking cessation has been advised. For more information, call the [place] Tobacco Quit Line at 2-946-BEFY-NOW. - Dressing/Wound Care Site: unna boots. Change every 5-7 days and prn. - Diet/Nutrition Diet/Nutrition Orders: No Added Salt (SUMI), Cardiac - Activity Activity Orders: Up ad florencia, Walker - Services Needed Following services are medically necessary services: Nursing, Home Health Aide, Physical Therapy - Transfer Medications Home Medications: Carvedilol [Coreg] 25 mg PO BID 02/22/18 [History] Digoxin [Lanoxin] 0.25 mg PO DAILY 02/22/18 [History] Levothyroxine [Synthroid] 150 mcg PO DAILY 02/22/18 [History] Allergies/Adverse Reactions: 3 Allergy/AdvReac Type Severity Reaction Status Date / Time No Known Allergies Allergy Verified 02/22/18 10:10 Certification: Further, I certify that my clinical findings support that this patient is homebound (i.e. absences from home require considerable and taxing effort and are for medical reasons or voodoo services or infrequently or short duration when for other reasons) because: Homebound Reason: Patient requires assistance of a person or device to safely leave home, Leaving home requires considerable and taxing effort due to condition Attestation: My signature below is to certify that this patient is under my care and that I, or nurse practitioner, or a physician's security assistant working with me, has a face-to -face encounter with this patient.
== END 2018-03-03 15:45 | disposition home health service (06) | DRG 603 ==
LOC: INPGRE 16:40
PROVIDERS: ADMIT Internal Medicine; ATTEND Internal Medicine

== ENCOUNTER 2020-04-29 09:43 | Inpatient (IN) ==
[2020-04-29] MEDS ORDERED: Vancomycin 1,000 MG VIAL IVPB ONE (09:59)
[2020-04-29 10:47] LABS: Basophils # 0.1 K/mcL (0.0-0.2); Basophils % 0.7 %; Eosinophils # 0.1 K/mcL (0.0-0.6); Eosinophils % 0.8 %; Hematocrit 41.8 % (37.5-50.1); Immature Granulocytes % 0.5 % (0-4); Lymphocytes # 1.1 K/mcL (0.6-4.6); Lymphocytes % 9.5 %; Mean Corpuscular HGB Conc 33.5 g/dL (31.6-35.5); Mean Corpuscular Hemoglobin 31.4 pg (28.0-33.3); Mean Corpuscular Volume 93.7 fL (83.0-100.0); Mean Platelet Volume 10.3 fL (9.4-12.4); Monocytes % 8.6 %; Neutrophils # 9.2 K/mcL (1.6-8.9); Platelet Count 174 K/mcL (140-400); Red Blood Count 4.46 M/mcL (4.19-5.50); Red Cell Distribution Width 14.6 % (11.5-14.5); Segmented Neutrophils % 79.9 %; White Blood Count 11.5 K/mcL (4.3-11.1)
[2020-04-29] MEDS ORDERED: *HR* Metoprolol 5 MG/5 ML VIAL IVP ONE ×2 (10:50→11:44)
[2020-04-29 11:05] LABS: Alanine Aminotransferase 8 Units/L (7-52); Albumin 4.3 g/dL (3.5-5.7); Albumin/Globulin Ratio 1.4 (1.1-2.2); Alkaline Phosphatase 99 Units/L (34-104); Aspartate Amino Transferase 14 Units/L (13-39); BUN/Creatinine Ratio 19 (6-26); Bilirubin,Total 2.9 mg/dL (0.3-1.0); Blood Urea Nitrogen 25 mg/dL (8-23); Calcium 9.8 mg/dL (8.6-10.3); Carbon Dioxide 27 mEq/L (23-29); Chloride 98 mEq/L (98-107); Globulin 3.1 g/dL (2.4-3.5); Glucose 122 mg/dL (70-105); Osmolality,Calculated 288 (280-300); Potassium 3.6 mEq/L (3.5-5.1); Sodium 136 mEq/L (136-145); Total Protein 7.4 g/dL (6.4-8.9); eGFR For African Americans > 60 (> 60); eGFR For Non-African Americans 53 (> 60)
[2020-04-29] MEDS ORDERED: Naloxone 0.4 MG/ML INJ IVP PRN (11:44)
[2020-04-29] MEDS ORDERED: D5% in Water 1,000 ML IVC PRN (13:09)
[2020-04-29] MEDS ORDERED: *HR* Dextrose 50 % in Water (Syg) 50 ML SYRINGE IVP PRN (13:09)
[2020-04-29] MEDS ORDERED: Dextrose Gel 15 GM/37.5 ML TUBE PO PRN ×2 (13:09)
[2020-04-29] MEDS ORDERED: *HR* Enoxaparin 100 MG/ML SYRINGE SQ SCH ×3 (13:30→21:00)
[2020-04-29] MEDS: Insulin LISPRO 300 UNITS/3 ML VIAL SQ SCH ×2 (15:59→21:59)
[2020-04-29] MEDS: 0.9 % Sodium Chloride 1,000 ML IVC SCH (16:34)
[2020-04-29] MEDS ORDERED: Acetaminophen 325 MG TABLET PO PRN (16:46)
[2020-04-29] MEDS ORDERED: carvediloL 25 MG TABLET PO SCH (17:00)
[2020-04-29] MEDS ORDERED: 0.9 % Sodium Chloride 500 ML IVC ONE (20:00)
[2020-04-29] MEDS: Nystatin Cream 15 GM TUBE TP SCH (22:18)
[2020-04-29] MEDS ORDERED: 0.9 % Sodium Chloride 500 ML IV ONE (22:59)
[2020-04-30] MEDS: 0.9 % Sodium Chloride 1,000 ML IVC SCH ×3 (00:38→18:11)
[2020-04-30 05:41] LABS: Basophils # 0.1 K/mcL (0.0-0.2); Basophils % 0.5 %; Eosinophils # 0.1 K/mcL (0.0-0.6); Hematocrit 35.4 % (37.5-50.1); Hemoglobin 11.6 g/dL (12.9-16.9); Immature Granulocytes % 0.5 % (0-4); Lymphocytes # 0.6 K/mcL (0.6-4.6); Lymphocytes % 5.3 %; Mean Corpuscular HGB Conc 32.8 g/dL (31.6-35.5); Mean Corpuscular Hemoglobin 31.4 pg (28.0-33.3); Mean Corpuscular Volume 95.7 fL (83.0-100.0); Mean Platelet Volume 10.5 fL (9.4-12.4); Monocytes # 0.8 K/mcL (0.0-1.3); Monocytes % 6.7 %; Neutrophils # 9.8 K/mcL (1.6-8.9); Platelet Count 112 K/mcL (140-400); Red Cell Distribution Width 14.6 % (11.5-14.5); White Blood Count 11.4 K/mcL (4.3-11.1)
[2020-04-30] MEDS: *HR* Enoxaparin 100 MG/ML SYRINGE SQ SCH ×2 (05:44→17:08)
[2020-04-30 05:54] LABS: Sodium 138 mEq/L (136-145)
[2020-04-30 05:55] LABS: BUN/Creatinine Ratio 15 (6-26); Blood Urea Nitrogen 16 mg/dL (8-23); Calcium 7.9 mg/dL (8.6-10.3); Carbon Dioxide 26 mEq/L (23-29); Chloride 106 mEq/L (98-107); Glucose 102 mg/dL (70-105); Osmolality,Calculated 287 (280-300); Potassium 3.6 mEq/L (3.5-5.1); eGFR For African Americans > 60 (> 60); eGFR For Non-African Americans > 60 (> 60)
[2020-04-30 05:56] LABS: Albumin 3.1 g/dL (3.5-5.7); Albumin/Globulin Ratio 1.5 (1.1-2.2); Bilirubin,Direct 1.4 mg/dL (0.0-0.2); Bilirubin,Indirect 2.2 mg/dL (0.0-1.0); Bilirubin,Total 3.6 mg/dL (0.3-1.0); Globulin 2.1 g/dL (2.4-3.5); Total Protein 5.2 g/dL (6.4-8.9)
[2020-04-30] MEDS: Insulin LISPRO 300 UNITS/3 ML VIAL SQ SCH ×4 (08:08→22:17)
[2020-04-30] MEDS: Nystatin Cream 15 GM TUBE TP SCH ×4 (08:12→22:18)
[2020-04-30] MEDS ORDERED: Furosemide 40 MG TABLET PO SCH (09:00)
[2020-04-30] MEDS: Aspirin 325 MG TABLET PO SCH (09:20)
[2020-04-30] MEDS: *HR* Digoxin 0.25 MG TABLET PO SCH (09:22)
[2020-04-30 09:51] LABS: Estimated Average Glucose 114 mg/dl
[2020-04-30] MEDS ORDERED: 0.9 % Sodium Chloride 500 ML IVC ONE ×2 (10:27→13:14)
[2020-04-30] MEDS: Acetaminophen 325 MG TABLET PO PRN (11:33)
[2020-04-30] MEDS: Vancomycin 1,500 MG/265 ML IV.SOLN IVPB SCH (11:34)
[2020-04-30] MEDS ORDERED: 0.9 % Sodium Chloride 1,000 ML IVC SCH (13:45)
[2020-04-30 15:11] LABS: Basophils % 0.5 %; Eosinophils # 0.1 K/mcL (0.0-0.6); Eosinophils % 1.3 %; Hematocrit 32.4 % (37.5-50.1); Hemoglobin 10.9 g/dL (12.9-16.9); Immature Granulocytes % 0.4 % (0-4); Lymphocytes # 0.7 K/mcL (0.6-4.6); Lymphocytes % 8.4 %; Mean Corpuscular HGB Conc 33.6 g/dL (31.6-35.5); Mean Corpuscular Hemoglobin 32.1 pg (28.0-33.3); Mean Corpuscular Volume 95.3 fL (83.0-100.0); Mean Platelet Volume 10.5 fL (9.4-12.4); Monocytes # 0.6 K/mcL (0.0-1.3); Monocytes % 6.9 %; Platelet Count 106 K/mcL (140-400); Red Cell Distribution Width 14.9 % (11.5-14.5); Segmented Neutrophils % 82.5 %; White Blood Count 8.4 K/mcL (4.3-11.1)
[2020-04-30 15:20] LABS: Alanine Aminotransferase 17 Units/L (7-52); Albumin 2.8 g/dL (3.5-5.7); Albumin/Globulin Ratio 1.4 (1.1-2.2); Alkaline Phosphatase 84 Units/L (34-104); Aspartate Amino Transferase 32 Units/L (13-39); BUN/Creatinine Ratio 14 (6-26); Bilirubin,Direct 0.6 mg/dL (0.0-0.2); Bilirubin,Indirect 1.6 mg/dL (0.0-1.0); Bilirubin,Total 2.2 mg/dL (0.3-1.0); Blood Urea Nitrogen 13 mg/dL (8-23); Calcium 7.4 mg/dL (8.6-10.3); Carbon Dioxide 25 mEq/L (23-29); Chloride 107 mEq/L (98-107); Glucose 123 mg/dL (70-105); Osmolality,Calculated 283 (280-300); Sodium 136 mEq/L (136-145); Total Protein 4.8 g/dL (6.4-8.9); eGFR For African Americans > 60 (> 60); eGFR For Non-African Americans > 60 (> 60)
[2020-05-01] MEDS: 0.9 % Sodium Chloride 1,000 ML IVC SCH ×2 (02:03→10:41)
[2020-05-01] MEDS: *HR* Enoxaparin 100 MG/ML SYRINGE SQ SCH ×2 (04:52→16:56)
[2020-05-01 06:09] LABS: Basophils # 0.1 K/mcL (0.0-0.2); Basophils % 0.6 %; Eosinophils # 0.2 K/mcL (0.0-0.6); Eosinophils % 1.9 %; Hematocrit 32.7 % (37.5-50.1); Hemoglobin 10.7 g/dL (12.9-16.9); Immature Granulocytes % 0.4 % (0-4); Lymphocytes # 0.9 K/mcL (0.6-4.6); Lymphocytes % 11.2 %; Mean Corpuscular HGB Conc 32.7 g/dL (31.6-35.5); Mean Corpuscular Hemoglobin 31.2 pg (28.0-33.3); Mean Corpuscular Volume 95.3 fL (83.0-100.0); Mean Platelet Volume 10.3 fL (9.4-12.4); Monocytes # 0.7 K/mcL (0.0-1.3); Monocytes % 8.8 %; Red Blood Count 3.43 M/mcL (4.19-5.50); Red Cell Distribution Width 14.7 % (11.5-14.5); Segmented Neutrophils % 77.1 %; White Blood Count 7.8 K/mcL (4.3-11.1)
[2020-05-01 06:32] LABS: Alanine Aminotransferase 14 Units/L (7-52); Albumin 2.8 g/dL (3.5-5.7); Albumin/Globulin Ratio 1.4 (1.1-2.2); Alkaline Phosphatase 79 Units/L (34-104); Aspartate Amino Transferase 23 Units/L (13-39); BUN/Creatinine Ratio 11 (6-26); Bilirubin,Direct 0.3 mg/dL (0.0-0.2); Bilirubin,Indirect 0.8 mg/dL (0.0-1.0); Bilirubin,Total 1.1 mg/dL (0.3-1.0); Blood Urea Nitrogen 9 mg/dL (8-23); Calcium 7.3 mg/dL (8.6-10.3); Carbon Dioxide 24 mEq/L (23-29); Chloride 109 mEq/L (98-107); Glucose 117 mg/dL (70-105); Osmolality,Calculated 284 (280-300); Potassium 3.5 mEq/L (3.5-5.1); Sodium 137 mEq/L (136-145); Total Protein 4.8 g/dL (6.4-8.9); eGFR For African Americans > 60 (> 60); eGFR For Non-African Americans > 60 (> 60)
[2020-05-01 06:39] LABS: Platelet Count 92 K/mcL (140-400)
[2020-05-01] MEDS: Insulin LISPRO 300 UNITS/3 ML VIAL SQ SCH ×4 (07:34→20:33)
[2020-05-01] MEDS: Aspirin 325 MG TABLET PO SCH (07:40)
[2020-05-01] MEDS: *HR* Digoxin 0.25 MG TABLET PO SCH (07:41)
[2020-05-01] MEDS: Nystatin Cream 15 GM TUBE TP SCH ×4 (07:41→20:33)
[2020-05-01] MEDS: Vancomycin 1,500 MG/265 ML IV.SOLN IVPB SCH (11:36)
[2020-05-01] MEDS: Piperacillin/Tazobactam 3.375 GM in 0.9 % Sodium Chloride Mini Bag 100 ML IVPB SCH ×2 (14:30→23:24)
[2020-05-02] MEDS: 0.9 % Sodium Chloride 1,000 ML IVC SCH ×3 (01:44→09:34)
[2020-05-02 05:16] LABS: Basophils # 0.1 K/mcL (0.0-0.2); Basophils % 0.6 %; Eosinophils # 0.2 K/mcL (0.0-0.6); Eosinophils % 2.9 %; Hematocrit 32.8 % (37.5-50.1); Hemoglobin 10.7 g/dL (12.9-16.9); Immature Granulocytes % 0.5 % (0-4); Lymphocytes % 11.7 %; Mean Corpuscular HGB Conc 32.6 g/dL (31.6-35.5); Mean Corpuscular Hemoglobin 31.1 pg (28.0-33.3); Mean Corpuscular Volume 95.3 fL (83.0-100.0); Mean Platelet Volume 10.7 fL (9.4-12.4); Monocytes # 0.7 K/mcL (0.0-1.3); Monocytes % 8.7 %; Neutrophils # 6.3 K/mcL (1.6-8.9); Platelet Count 103 K/mcL (140-400); Red Blood Count 3.44 M/mcL (4.19-5.50); Red Cell Distribution Width 14.8 % (11.5-14.5); Segmented Neutrophils % 75.6 %; White Blood Count 8.4 K/mcL (4.3-11.1)
[2020-05-02 05:35] LABS: Alanine Aminotransferase 13 Units/L (7-52); Albumin 2.7 g/dL (3.5-5.7); Albumin/Globulin Ratio 1.3 (1.1-2.2); Alkaline Phosphatase 83 Units/L (34-104); Aspartate Amino Transferase 17 Units/L (13-39); BUN/Creatinine Ratio 10 (6-26); Bilirubin,Direct 0.3 mg/dL (0.0-0.2); Bilirubin,Indirect 0.6 mg/dL (0.0-1.0); Bilirubin,Total 0.9 mg/dL (0.3-1.0); Blood Urea Nitrogen 8 mg/dL (8-23); Calcium 7.5 mg/dL (8.6-10.3); Carbon Dioxide 26 mEq/L (23-29); Chloride 107 mEq/L (98-107); Globulin 2.1 g/dL (2.4-3.5); Glucose 125 mg/dL (70-105); Osmolality,Calculated 286 (280-300); Potassium 3.6 mEq/L (3.5-5.1); Sodium 138 mEq/L (136-145); Total Protein 4.8 g/dL (6.4-8.9); eGFR For African Americans > 60 (> 60); eGFR For Non-African Americans > 60 (> 60)
[2020-05-02] MEDS: *HR* Enoxaparin 100 MG/ML SYRINGE SQ SCH ×2 (05:39→17:08)
[2020-05-02] MEDS: Piperacillin/Tazobactam 3.375 GM in 0.9 % Sodium Chloride Mini Bag 100 ML IVPB SCH ×3 (09:21→23:35)
[2020-05-02] MEDS: *HR* Digoxin 0.25 MG TABLET PO SCH (09:21)
[2020-05-02] MEDS: Aspirin 325 MG TABLET PO SCH (09:21)
[2020-05-02] MEDS: Insulin LISPRO 300 UNITS/3 ML VIAL SQ SCH ×4 (09:22→20:28)
[2020-05-02] MEDS: Nystatin Cream 15 GM TUBE TP SCH ×4 (09:23→20:28)
[2020-05-02] MEDS: Vancomycin 1,750 MG/517.5 ML IV.SOLN IVPB SCH (11:59)
[2020-05-03] MEDS: *HR* Enoxaparin 100 MG/ML SYRINGE SQ SCH ×2 (05:52→17:55)
[2020-05-03 06:10] LABS: Basophils % 0.5 %; Eosinophils # 0.2 K/mcL (0.0-0.6); Eosinophils % 2.8 %; Hematocrit 33.9 % (37.5-50.1); Hemoglobin 11.3 g/dL (12.9-16.9); Immature Granulocytes % 0.4 % (0-4); Lymphocytes % 12.8 %; Mean Corpuscular HGB Conc 33.3 g/dL (31.6-35.5); Mean Corpuscular Hemoglobin 31.2 pg (28.0-33.3); Mean Corpuscular Volume 93.6 fL (83.0-100.0); Mean Platelet Volume 10.4 fL (9.4-12.4); Monocytes # 0.7 K/mcL (0.0-1.3); Monocytes % 9.2 %; Neutrophils # 5.7 K/mcL (1.6-8.9); Platelet Count 116 K/mcL (140-400); Red Blood Count 3.62 M/mcL (4.19-5.50); Red Cell Distribution Width 14.7 % (11.5-14.5); Segmented Neutrophils % 74.3 %; White Blood Count 7.7 K/mcL (4.3-11.1)
[2020-05-03 06:23] LABS: BUN/Creatinine Ratio 13 (6-26); Blood Urea Nitrogen 9 mg/dL (8-23); Calcium 7.6 mg/dL (8.6-10.3); Carbon Dioxide 24 mEq/L (23-29); Chloride 106 mEq/L (98-107); Glucose 107 mg/dL (70-105); Osmolality,Calculated 277 (280-300); Potassium 3.6 mEq/L (3.5-5.1); Sodium 134 mEq/L (136-145); eGFR For African Americans > 60 (> 60); eGFR For Non-African Americans > 60 (> 60)
[2020-05-03] MEDS: Insulin LISPRO 300 UNITS/3 ML VIAL SQ SCH ×4 (08:16→22:55)
[2020-05-03] MEDS: Piperacillin/Tazobactam 3.375 GM in 0.9 % Sodium Chloride Mini Bag 100 ML IVPB SCH ×3 (08:16→23:13)
[2020-05-03] MEDS: Nystatin Cream 15 GM TUBE TP SCH ×2 (08:17→23:15)
[2020-05-03] MEDS: *HR* Digoxin 0.25 MG TABLET PO SCH (08:17)
[2020-05-03] MEDS: Aspirin 325 MG TABLET PO SCH (08:17)
[2020-05-03] MEDS: Vancomycin 1,750 MG/517.5 ML IV.SOLN IVPB SCH (12:02)
[2020-05-03] MEDS: carvediloL 6.25 MG TABLET PO SCH ×2 (23:11→23:18)
[2020-05-04] MEDS ORDERED: 0.9 % Sodium Chloride 500 ML IVC ONE (00:52)
[2020-05-04] MEDS: 0.9 % Sodium Chloride 1,000 ML IVC SCH (02:18)
[2020-05-04 05:12] LABS: Hematocrit 32.1 % (37.5-50.1); Hemoglobin 10.6 g/dL (12.9-16.9); Mean Corpuscular Hemoglobin 31.1 pg (28.0-33.3); Mean Corpuscular Volume 94.1 fL (83.0-100.0); Mean Platelet Volume 10.2 fL (9.4-12.4); Platelet Count 133 K/mcL (140-400); Red Blood Count 3.41 M/mcL (4.19-5.50); Red Cell Distribution Width 14.6 % (11.5-14.5); White Blood Count 8.6 K/mcL (4.3-11.1)
[2020-05-04] MEDS: *HR* Enoxaparin 100 MG/ML SYRINGE SQ SCH ×2 (05:13→17:48)
[2020-05-04 05:32] LABS: Alanine Aminotransferase 13 Units/L (7-52); Albumin 2.4 g/dL (3.5-5.7); Alkaline Phosphatase 104 Units/L (34-104); Aspartate Amino Transferase 15 Units/L (13-39); BUN/Creatinine Ratio 14 (6-26); Bilirubin,Total 0.8 mg/dL (0.3-1.0); Blood Urea Nitrogen 10 mg/dL (8-23); Calcium 7.3 mg/dL (8.6-10.3); Carbon Dioxide 23 mEq/L (23-29); Chloride 108 mEq/L (98-107); Globulin 2.3 g/dL (2.4-3.5); Glucose 137 mg/dL (70-105); Magnesium 1.8 mg/dL (1.6-2.6); Osmolality,Calculated 283 (280-300); Potassium 3.5 mEq/L (3.5-5.1); Sodium 136 mEq/L (136-145); Total Protein 4.7 g/dL (6.4-8.9); eGFR For African Americans > 60 (> 60); eGFR For Non-African Americans > 60 (> 60)
[2020-05-04] MEDS: Aspirin 325 MG TABLET PO SCH (08:59)
[2020-05-04] MEDS: *HR* Digoxin 0.25 MG TABLET PO SCH (08:59)
[2020-05-04] MEDS: Nystatin Cream 15 GM TUBE TP SCH ×2 (09:00→19:30)
[2020-05-04] MEDS: Piperacillin/Tazobactam 3.375 GM in 0.9 % Sodium Chloride Mini Bag 100 ML IVPB SCH ×3 (09:00→23:27)
[2020-05-04] MEDS: carvediloL 6.25 MG TABLET PO SCH ×2 (09:58→17:48)
[2020-05-04] MEDS: Insulin LISPRO 300 UNITS/3 ML VIAL SQ SCH ×4 (09:58→21:56)
[2020-05-04] MEDS: Vancomycin 1,750 MG/517.5 ML IV.SOLN IVPB SCH (13:06)
[2020-05-04] MEDS ORDERED: Bisacodyl 10 MG RECTAL SUPPOSITORY RC PRN (14:42)
[2020-05-04] MEDS: Sennosides 8.6 MG TABLET PO SCH (15:43)
[2020-05-04] MEDS: Acetaminophen 325 MG TABLET PO PRN (19:28)
[2020-05-05] MEDS: *HR* Enoxaparin 100 MG/ML SYRINGE SQ SCH (05:22)
[2020-05-05 05:30] LABS: Hematocrit 34.8 % (37.5-50.1); Hemoglobin 11.5 g/dL (12.9-16.9); Mean Corpuscular Hemoglobin 31.3 pg (28.0-33.3); Mean Corpuscular Volume 94.8 fL (83.0-100.0); Mean Platelet Volume 9.7 fL (9.4-12.4); Platelet Count 138 K/mcL (140-400); Red Blood Count 3.67 M/mcL (4.19-5.50); Red Cell Distribution Width 14.8 % (11.5-14.5)
[2020-05-05 05:45] LABS: BUN/Creatinine Ratio 14 (6-26); Blood Urea Nitrogen 10 mg/dL (8-23); Calcium 7.8 mg/dL (8.6-10.3); Carbon Dioxide 25 mEq/L (23-29); Chloride 107 mEq/L (98-107); Glucose 100 mg/dL (70-105); Magnesium 1.9 mg/dL (1.6-2.6); Osmolality,Calculated 283 (280-300); Potassium 3.7 mEq/L (3.5-5.1); Sodium 137 mEq/L (136-145); eGFR For African Americans > 60 (> 60); eGFR For Non-African Americans > 60 (> 60)
[2020-05-05] MEDS: Insulin LISPRO 300 UNITS/3 ML VIAL SQ SCH (07:25)
[2020-05-05] MEDS: Aspirin 325 MG TABLET PO SCH (07:55)
[2020-05-05] MEDS: *HR* Digoxin 0.25 MG TABLET PO SCH (07:56)
[2020-05-05] MEDS: Sennosides 8.6 MG TABLET PO SCH (07:56)
[2020-05-05] MEDS: carvediloL 6.25 MG TABLET PO SCH ×2 (07:56→16:07)
[2020-05-05] MEDS: Piperacillin/Tazobactam 3.375 GM in 0.9 % Sodium Chloride Mini Bag 100 ML IVPB SCH ×3 (07:57→23:47)
[2020-05-05] MEDS: Nystatin Cream 15 GM TUBE TP SCH ×2 (09:18→20:01)
[2020-05-05] MEDS: Acetaminophen 325 MG TABLET PO PRN ×2 (10:35→22:20)
[2020-05-05] MEDS: 0.9 % Sodium Chloride 1,000 ML IVC SCH (11:50)
[2020-05-05] MEDS: Apixaban 5 MG TABLET PO SCH (19:59)
[2020-05-06] MEDS: Aspirin 325 MG TABLET PO SCH (07:35)
[2020-05-06] MEDS: Sennosides 8.6 MG TABLET PO SCH (07:48)
[2020-05-06] MEDS: Apixaban 5 MG TABLET PO SCH ×2 (07:48→20:21)
[2020-05-06] MEDS: *HR* Digoxin 0.25 MG TABLET PO SCH (07:48)
[2020-05-06] MEDS: Piperacillin/Tazobactam 3.375 GM in 0.9 % Sodium Chloride Mini Bag 100 ML IVPB SCH ×3 (07:48→23:33)
[2020-05-06] MEDS: carvediloL 6.25 MG TABLET PO SCH ×2 (07:49→16:38)
[2020-05-06] MEDS: Acetaminophen 325 MG TABLET PO PRN (07:49)
[2020-05-06] MEDS: Nystatin Cream 15 GM TUBE TP SCH ×2 (07:50→20:25)
[2020-05-07] MEDS: Sennosides 8.6 MG TABLET PO SCH (09:04)
[2020-05-07] MEDS: carvediloL 6.25 MG TABLET PO SCH (09:04)
[2020-05-07] MEDS: *HR* Digoxin 0.25 MG TABLET PO SCH (09:04)
[2020-05-07] MEDS: Piperacillin/Tazobactam 3.375 GM in 0.9 % Sodium Chloride Mini Bag 100 ML IVPB SCH (09:04)
[2020-05-07] MEDS: Apixaban 5 MG TABLET PO SCH (09:04)
[2020-05-07] MEDS: Nystatin Cream 15 GM TUBE TP SCH (09:11)
[2020-05-07 11:30] VITALS: BP 124/83
[2020-05-07] MEDS: Acetaminophen 325 MG TABLET PO PRN (11:39)
== END 2020-05-07 14:15 | DRG 603 ==
LOC: EMEROOGRE 09:43 → INPGRE 09:43
PROVIDERS: ADMIT Family Medicine; ATTEND Family Medicine